=== PATIENT | female | born 1940 | race Two or more races ===

== ENCOUNTER 2018-02-17 09:40 | Outpatient (CLI) | payer OTHER | END 2018-02-17 09:50 | disposition home or self-care (01) | LOC: RAD 09:40 | DX: Z12.31 Encounter for screening mammogram for malignant neoplasm of breast (principal); Z87.898 Personal history of other specified conditions; R42 Dizziness and giddiness; G25.0 Essential tremor; R13.12 Dysphagia, oropharyngeal phase; D24.2 Benign neoplasm of left breast; D24.1 Benign neoplasm of right breast ==

== ENCOUNTER 2018-03-06 07:12 | Outpatient (CLI) | payer OTHER | END 2018-03-06 07:23 | disposition home or self-care (01) | LOC: NUCLEAR 07:12 | DX: I11.9 Hypertensive heart disease without heart failure (principal); I20.0 Unstable angina; E78.2 Mixed hyperlipidemia | CPT/HCPCS: 78452; 93017; A9500; J0153 ==